=== PATIENT | male | born 1955 | race Caucasian/White ===

== ENCOUNTER → 2021-04-21 | Outpatient (CLI) | payer OTHER ==
[2021-04-21 10:31] LABS: ALBUMIN 3.7 g/dL (3.4-5.0); ALBUMIN/GLOBULIN RATIO 0.9 (1.0-1.7); CALCIUM 8.8 mg/dL (8.5-10.1); CREATININE 1.5 mg/dL (0.7-1.3); GFR 47.1; POTASSIUM 4.2 mmol/L (3.5-5.1); TOTAL BILIRUBIN 0.3 mg/dL (0.2-1.0); TOTAL PROTEIN 7.8 g/dL (6.4-8.2)
== END ==
LOC: LAB 08:39
PROVIDERS: ATTEND Anesthesiology Pain Medicine
DX: Z02.71 Encounter for disability determination (principal); N28.89 Other specified disorders of kidney and ureter
CPT/HCPCS: 36415; 80053

== ENCOUNTER → 2021-06-07 | Outpatient (CLI) | payer OTHER | LOC: PF 07:23 | PROVIDERS: ATTEND Anesthesiology Pain Medicine | DX: Z02.71 Encounter for disability determination (principal); R06.02 Shortness of breath | CPT/HCPCS: 94010; 94729 ==